=== PATIENT | male | born 1975 ===

== ENCOUNTER 2017-07-25 03:44 | Emergency (ER) | payer SELFPAY ==
[2017-07-25 04:05] VITALS: BP 130/60; PULSE 84; RESP 16; TEMP 99; O2SAT 96
--- NOTE | 2017-07-25 05:34 | ED PDOC ---
HPI: Nose Bleed Time Seen by Provider: 07/25/17 03:50 Chief Complaint (Nursing): ENT Problem Chief Complaint (Provider): Epitaxis History Per: Patient History/Exam Limitations: no limitations Onset/Duration Of Symptoms: Days (x2) Current Symptoms Are (Timing): Still Present Location Of Bleeding: Both Nares Additional Complaint(s): Saman Copeland is a 41 year-old male presenting in the emergency department complaining of two episodes of epistaxis since yesterday, 07/24/17. Another episode began today, 07/25/17 at 2am until 5am. He also reports of dry coughs and fever yesterday. However, he states the fever resolved today. Patient denies of vomiting, nausea, or diarrhea. PMD: Provider TBD Past Medical History Reviewed: Historical Data, Nursing Documentation, Vital Signs Vital Signs: Last Vital Signs Temp 99 F 07/25/17 04:02 Pulse 84 07/25/17 04:02 Resp 16 07/25/17 04:02 BP 130/60 07/25/17 04:02 Pulse Ox 96 07/25/17 04:02 - Medical History PMH: No Chronic Diseases - Surgical History Surgical History: No Surg Hx - Family History Family History: States: Unknown Family Hx - Allergies Allergies/Adverse Reactions: Allergies Allergy/AdvReac Type Severity Reaction Status Date / Time No Known Allergies Allergy Verified 07/25/17 04:02 Review of Systems ROS Statement: Except As Marked, All Systems Reviewed And Found Negative Constitutional: Negative for: Fever, Chills ENT: Positive for: Other (epistaxis) Respiratory: Positive for: Cough Gastrointestinal: Negative for: Nausea, Vomiting, Diarrhea Physical Exam - Reviewed Nursing Documentation Reviewed: Yes Vital Signs Reviewed: Yes - Physical Exam Appears: Positive for: Non-toxic, No Acute Distress Head Exam: Positive for: ATRAUMATIC, NORMAL INSPECTION, NORMOCEPHALIC Skin: Positive for: Normal Color, Warm, Dry Eye Exam: Positive for: EOMI, Normal appearance, PERRL ENT: Positive for: Pharynx Is (normal), Other (dry blood at both nares. no active bleeding currently. no septal hematoma) Cardiovascular/Chest: Positive for: Regular Rate, Rhythm. Negative for: Murmur Respiratory: Positive for: Normal Breath Sounds. Negative for: Accessory Muscle Use, Respiratory Distress Extremity: Positive for: Normal ROM. Negative for: Deformity Neurologic/Psych: Positive for: Alert, Oriented (x3) - ECG O2 Sat by Pulse Oximetry: 96 (RA) Pulse Ox Interpretation: Normal Medical Decision Making Medical Decision Making: Impression: Epistaxis Time: 05:19 Initial Plan: --Influenza A B Time: 6:50 Flu is negative. Patient is medically stable for discharge home. Counseling was provided and all questions were answered regarding diagnosis and need for follow up with PMD. There is agreement to discharge plan. Return if symptoms persist or worsen. Scribe Attestation: Documented by Javier Betancourt, acting as a scribe for Aime Sanabria MD Provider Scribe Attestation: All medical record entries made by the Scribe were at my direction and personally dictated by me. I have reviewed the chart and agree that the record accurately reflects my personal performance of the history, physical exam, medical decision making, and the department course for this patient. I have also personally directed, reviewed, and agree with the discharge instructions and disposition. Disposition - Clinical Impression Clinical Impression: Epistaxis - Patient ED Disposition Is Patient to be Admitted: No Counseled Patient/Family Regarding: Diagnosis, Need For Followup - Disposition Referrals: Yong Perez MD [Staff Provider] - Disposition: Routine/Home Disposition Time: 06:00 Condition: IMPROVED Additional Instructions: follow up with Dr Perez in 2 days return to the ED with any worsening or concerning symptoms Instructions: Nosebleed (ED) Forms: [employer] ([place]) Print Language: GREEK
== END 2017-07-25 07:11 | disposition home or self-care (01) ==
LOC: H.ER 03:44
DX: R04.0 Epistaxis (principal)